=== PATIENT | male | born 1970 | race Two or more races ===

== ENCOUNTER 2018-10-22 14:24 | Inpatient (IN) | payer OTHER ==
[2018-10-22 15:14] VITALS: BMI 44.8
--- NOTE | 2018-10-22 15:39 | HP ---
COWS - Scale Resting Pulse: 0= [place] 80 or Below Sweatin= Chills/Flushing Restless Observation: 1= Difficult to Sit Still Pupil Size: 1= Pupils >than Normal Bone or Joint Aches: 2= Severe Diffuse Aches Runny Nose/ Eye Tearin= Runny Nose/Eyes GI Upset > 30mins: 3= Vomiting/Diarrhea Tremor Observation: 2= Slight Tremor Visible Yawning Observation: 1= 1-2x During Session Anxiety or Irritability: 2=Irritable/Anxious Goose Flesh Skin: 0=Smooth Skin COWS Score: 15 CIWA Score Nausea/Vomitin Muscle Tremors: 2 Anxiety: 2 Agitation: 2 Paroxysmal Sweats: 1-Minimal Palms Moist Orientation: 0-Oriented Tacttile Disturbances: 1-Very Mild Itch/Numbness Auditory Disturbances: 1-Very Mild Visual Disturbances: 0-None Headache: 2-Mild CIWA-Ar Total Score: 13 - Admission Criteria [facility]ASAS Guidelines: Admission for Medically Managed Detox: Requires at least one of the followin. CIWA greater than 12 2. Seizures within the past 24 hours 3. Delirium tremens within the past 24 hours 4. Hallucinations within the past 24 hours 5. Acute intervention needed for co occurring medical disorder 6. Acute intervention needed for co occurring psychiatric disorder 7. Severe withdrawal that cannot be handled at a lower level of care (continued vomiting, continued diarrhea, abnormal vital signs) requiring intravenous medication and/or fluids 8. Admission ROS [facility] Chief Complaint: patient needed help to stop using heroin,alcohol,marijuana Allergies/Adverse Reactions: Allergies Allergy/AdvReac Type Severity Reaction Status Date / Time No Known Allergies Allergy Verified 10/22/18 15:16 History of Present Illness: this 47 years old male with heroin and alcohol dependence,also using marijuana, seeking detox,mandated on parole, seen at [facility] [place] Dvt of right leg supposed to take xerelto ambulation with cane history of dvt left leg in 2016 history of neuropathy history of bipolar disorder,ptsd ambulation with cane last detox in 2016 did not recall the facility longest period of sobriety 7 and a half year had sugery for intestinal obstruction in 1995 at [facility] - Ebola screening Have you traveled outside of the country in the last 21 days: No Have you had contact with anyone from an Ebola affected area: No Have you been sick,other than usual withdrawal symptoms: No Do you have a fever: No - Review of Systems Constitutional: Chills, Loss of Appetite, Malaise, Night Sweats, Changes in sleep, Weakness EENT: reports: Tearing, Nose Congestion Respiratory: reports: No Symptoms reported Cardiac: reports: No Symptoms Reported GI: reports: Nausea, Poor Appetite, Abdominal cramping : reports: No Symptoms Reported Musculoskeletal: reports: Back Pain, Joint Pain, Muscle Pain, Other (pain in the right leg) Integumentary: reports: Dryness Neuro: reports: Headache, Tremors Endocrine: reports: No Symptoms Reported Hematology: reports: No Symptoms Reported Psychiatric: reports: No Sypmtoms Reported, Judgement Intact, Mood/Affect Appropiate, Orientated x3, other (bipolar disorder ptsd) Patient History - Patient Medical History Hx Anemia: No Hx Asthma: No Hx Chronic Obstructive Pulmonary Disease (COPD): No Hx Cancer: No Hx Cardiac Disorders: No Hx Congestive Heart Failure: No Hx Hypertension: No Hx Hypercholesterolemia: No Hx Pacemaker: No HX Cerebrovascular Accident: No Hx Seizures: No Hx Dementia: No Hx Diabetes: No Hx Gastrointestinal Disorders: Yes (surgery for intestinal obstruction in 1995 at [facility]) Hx Liver Disease: No Hx Genitourinary Disorders: No Hx Sexually Transmitted Disorders: No Hx Renal Disease (ESRD): No Hx Thyroid Disease: No Hx Human Immunodeficiency Virus (HIV): No (negative 1 yr ago) Hx Hepatitis C: Yes Hx Depression: Yes Hx Suicide Attempt: Yes Hx Bipolar Disorder: Yes Hx Schizophrenia: No Other Medical History: ptsd,no suicidal,no homicidal,dvt of right leg,dvt left leg,neuropathy - Patient Surgical History Past Surgical History: No Hx Neurologic Surgery: No Hx Cataract Extraction: No Hx Cardiac Surgery: No Hx Lung Surgery: No Hx Breast Surgery: No Hx Breast Biopsy: No Hx Abdominal Surgery: Yes (small bowel obstruction in 1995 [facility]) Hx Appendectomy: No Hx Cholecystectomy: No Hx Genitourinary Surgery: No Hx Section: No Hx Orthopedic Surgery: No Hx Hysterectomy: No Anesthesia Reaction: No - PPD History Previous Implant?: Yes Documented Results: Negative w/o proof Implanted On Prior [facility] Admission?: Yes Date: 07/15/14 Results: 0 mm PPD to be Administered?: No - Smoking Cessation Smoking history: Current every day smoker Have you smoked in the past 12 months: Yes Aproximately how many cigarettes per day: 20 Cigars Per Day: 0 Hx Chewing Tobacco Use: No Initiated information on smoking cessation: Yes 'Breaking Loose' booklet given: 10/22/18 - Substance & Tx. History Hx Alcohol Use: Yes Hx Substance Use: Yes Substance Use Type: Alcohol, Heroin, Marijuana Hx Substance Use Treatment: Yes (2016 did not recall the facility) - Substances Abused Heroin Route: Inhalation Frequency: Daily Amount used: 5-6 BAGS Age of first use: 30 Date of Last Use: 10/21/18 Alcohol Route: Oral Frequency: Daily Amount used: 1 PINT LIQUOR Age of first use: 16 Date of Last Use: 10/20/18 Marijuana/Hashish Route: Smoking Frequency: 1-3 times last 30 days Amount used: 1 JOINT Age of first use: 24 Date of Last Use: 10/19/18 Family Disease History - Family Disease History Family History: Denies Family Disease History: Diabetes: Grandparent, Mother Admission Physical Exam [facility] - Vital Signs Vital Signs: Vital Signs - 24 hr 10/22/18 15:13 Temperature 98.0 F Pulse Rate 73 Respiratory 18 Rate Blood Pressure 126/68 - Physical General Appearance: Yes: Moderate Distress, Tremorous, Irritable, Sweating, Anxious HEENTM: Yes: Normal ENT Inspection, CARMELO, Pharynx Normal Respiratory: Yes: Within Normal Limits, Lungs Clear, Normal Breath Sounds Neck: Yes: Within Normal Limits, Supple, Trachea in good position Breast: Yes: Within Normal Limits Cardiology: Yes: Within Normal Limits, Regular Rhythm, Regular Rate, S1, S2 Abdominal: Yes: Within Normal Limits, Normal Bowel Sounds, Non Tender, Soft, Surgical Scar (surgica scar in epigatrium) Genitourinary: Yes: Within Normal Limits Back: Yes: Muscle Spasm Musculoskeletal: Yes: Back pain, Joint Stiffness, Muscle Pain Extremities: Yes: Within Normal Limits (swelling with pain in right leg and tenderness history of dvt of right leg), Tremors Neurological: Yes: concrete pavement installer II-XII NML intact, Fully Oriented, Alert, Motor Strength 5/5 Integumentary: Yes: Dry Lymphatic: Yes: Within Normal Limits - Diagnostic (1) Opioid dependence with withdrawal Current Visit: Yes Status: Acute (2) Alcohol dependence with uncomplicated withdrawal Current Visit: Yes Status: Acute (3) Cannabis dependence Current Visit: Yes Status: Chronic (4) Right leg DVT Current Visit: Yes Status: Acute (5) History of deep venous thrombosis (DVT) of distal vein of left lower extremity Current Visit: Yes Status: Acute (6) Use of cane as ambulatory aid Current Visit: Yes Status: Acute (7) Nicotine dependence Current Visit: Yes Status: Chronic (8) Bipolar disorder Current Visit: Yes Status: Chronic Comment: By history. Non-compliant with medications and aftercare. (9) PTSD (post-traumatic stress disorder) Current Visit: Yes Status: Acute (10) History of neuropathy Current Visit: Yes Status: Acute (11) History of abdominal surgery Current Visit: Yes Status: Acute (12) Intestinal obstruction Current Visit: Yes Status: Acute (13) Hepatitis C Current Visit: Yes Status: Acute Cleared for Admission [facility] - Detox or Rehab [facility] Level of Care: Medically Managed Detox Regimen/Protocol: Methadone/Librium [facility] Breath Alcohol Content Breath Alcohol Content: 0.001 Urine Drug Screen - Results Drug Screen Negative: No Urine Drug Screen Results: THC-Marijuana, OPI-Opiates, BZO-Benzodiazepines Inpatient Rehab Admission - Rehab Decision to Admit Inpatient rehab admission?: No
[2018-10-22] MEDS ORDERED: MAGNESIUM CITRATE 300 ML BOTTLE PO PRN (15:55)
[2018-10-22] MEDS ORDERED: MENTHOL/PHENOL 1 EACH UD MM PRN (15:55)
[2018-10-22] MEDS ORDERED: MAG HYDROX/AL HYDROX/SIMETH 30 ML UNIT-DOSE CUP PO PRN (15:55)
[2018-10-22] MEDS ORDERED: BISMUTH SUBSALICYLATE 524 MG/30 ML UD PO PRN (15:55)
[2018-10-22] MEDS ORDERED: NICOTINE POLACRILEX 2 MG GUM BUC PRN (15:55)
[2018-10-22] MEDS ORDERED: ACETAMINOPHEN 325 MG TABLET (FP) PO PRN (15:55)
[2018-10-22] MEDS ORDERED: MAGNESIUM HYDROX 2400MG/30ML ORAL SUSPENSION 30 ML CUP PO PRN (15:55)
[2018-10-22] MEDS ORDERED: cloNIDine HCL 0.1 MG TABLET PO PRN (15:55)
[2018-10-22] MEDS ORDERED: chlordiazePOXIDE HCL 25 MG CAPSULE PO PRN (16:00)
[2018-10-22] MEDS: NICOTINE 21 MG/24 HOURS TOPICAL PATCH TD SCH (21:35)
[2018-10-22] MEDS: chlordiazePOXIDE HCL 25 MG CAPSULE PO SCH ×2 (21:36→22:59)
[2018-10-22] MEDS: THIAMINE HCL 100 MG TABLET (FP) PO SCH (21:45)
[2018-10-22] MEDS: GABAPENTIN 100 MG CAPSULE (FP) PO SCH (21:45)
[2018-10-22] MEDS: RIVAROXABAN 15 MG TABLET PO SCH (21:45)
[2018-10-22] MEDS: IBUPROFEN 400 MG TABLET (FP) PO PRN (21:52)
[2018-10-22] MEDS ORDERED: METHADONE HCL 10 MG TABLET (FOR DETOX USE ONLY) PO ONE (23:00)
[2018-10-23] MEDS: chlordiazePOXIDE HCL 25 MG CAPSULE PO SCH ×4 (05:16→22:10)
[2018-10-23] MEDS: GABAPENTIN 100 MG CAPSULE (FP) PO SCH ×3 (08:04→22:10)
[2018-10-23] MEDS ORDERED: METHADONE HCL 10 MG TABLET (FOR DETOX USE ONLY) PO ONE (10:00)
[2018-10-23] MEDS: PRENATAL VITAMINS W/ FOLIC ACID TABLET (FP) PO SCH (10:30)
[2018-10-23 10:58] LABS: ALBUMIN 2.9 g/dl (3.4-5.0); ALK PHOS 99 U/L (45-117); ANION GAP 7 MMOL/L (8-16); BILIRUBIN,TOTAL 0.2 mg/dL (0.2-1); BLOOD UREA NITROGEN 12 mg/dL (7-18); CALCIUM 8.2 mg/dL (8.5-10.1); CHLORIDE 105 mmol/L (98-107); CO2 26 mmol/L (21-32); CREATININE 0.9 mg/dL (0.55-1.3); GLUCOSE,RANDOM 93 mg/dL (74-106); POTASSIUM 3.9 mmol/L (3.5-5.1); SGOT/AST 15 U/L (15-37); SGPT/ALT 16 U/L (13-61); SODIUM 138 mmol/L (136-145); TOT PROT 6.8 g/dl (6.4-8.2)
[2018-10-23 11:05] LABS: HEMATOCRIT 36.6 % (35.4-49); HEMOGLOBIN 12.4 GM/dL (11.7-16.9); MCH 31.4 pg (25.7-33.7); MCHC 33.8 g/dl (32.0-35.9); MEAN PLT VOLUME 8.1 fl (7.5-11.1); PLATELET COUNT 263 K/MM3 (134-434); RBC 3.94 M/mm3 (4.00-5.60); RDW 13.9 % (11.9-15.9); WHITE BLOOD COUNT 8.7 K/mm3 (4.0-10.0)
[2018-10-23] MEDS: NICOTINE 21 MG/24 HOURS TOPICAL PATCH TD SCH (11:34)
--- NOTE | 2018-10-23 14:52 | PN ---
[facility] CIWA - CIWA Score Nausea/Vomitin-No Nausea/No Vomiting Muscle Tremors: 3 Anxiety: 2 Agitation: 2 Paroxysmal Sweats: 3 Orientation: 0-Oriented Tacttile Disturbances: 0-None Auditory Disturbances: 0-None Visual Disturbances: 0-None Headache: 0-None Present CIWA-Ar Total Score: 10 S COWS - Scale Resting Pulse: 0= [place] 80 or Below Sweatin=Flushed/Facial Moisture Restless Observation: 0= Sits Still Pupil Size: 0= Normal to Room Light Bone or Joint Aches: 1= Mild Discomfort Runny Nose/ Eye Tearin= Nasal Congestion GI Upset > 30mins: 2= Nausea/Diarrhea Tremor Observation of Outstretched Hands: 2= Slight Tremor Visible Yawning Observation: 1= 1-2x During Session Anxiety or Irritability: 2=Irritable/Anxious Goose Flesh Skin: 0=Smooth Skin COWS Score: 11 S Progress Note (SOAP) Subjective: chills loss of appetite low back pain diarrhea Objective: 10/23/18 14:52 A & O x3 on bed skin flushed Vital Signs Temperature 97.9 F 10/23/18 13:23 Pulse Rate 67 10/23/18 13:23 Respiratory Rate 16 10/23/18 13:23 Blood Pressure 117/61 10/23/18 13:23 O2 Sat by Pulse Oximetry (%) Laboratory Last Values WBC 8.7 K/mm3 (4.0-10.0) 10/23/18 07:30 RBC 3.94 M/mm3 (4.00-5.60) L 10/23/18 07:30 Hgb 12.4 GM/dL (11.7-16.9) 10/23/18 07:30 Hct 36.6 % (35.4-49) 10/23/18 07:30 MCV 93.0 fl (80-96) 10/23/18 07:30 MCH 31.4 pg (25.7-33.7) 10/23/18 07:30 MCHC 33.8 g/dl (32.0-35.9) 10/23/18 07:30 RDW 13.9 % (11.9-15.9) 10/23/18 07:30 Plt Count 263 K/MM3 (134-434) 10/23/18 07:30 MPV 8.1 fl (7.5-11.1) 10/23/18 07:30 Sodium 138 mmol/L (136-145) 10/23/18 07:30 Potassium 3.9 mmol/L (3.5-5.1) 10/23/18 07:30 Chloride 105 mmol/L (98-107) 10/23/18 07:30 Carbon Dioxide 26 mmol/L (21-32) 10/23/18 07:30 Anion Gap 7 MMOL/L (8-16) L 10/23/18 07:30 BUN 12 mg/dL (7-18) 10/23/18 07:30 Creatinine 0.9 mg/dL (0.55-1.3) 10/23/18 07:30 Creat Clearance w eGFR 90.84 (>60) 10/23/18 07:30 Random Glucose 93 mg/dL (74-106) 10/23/18 07:30 Calcium 8.2 mg/dL (8.5-10.1) L 10/23/18 07:30 Total Bilirubin 0.2 mg/dL (0.2-1) 10/23/18 07:30 AST 15 U/L (15-37) 10/23/18 07:30 ALT 16 U/L (13-61) 10/23/18 07:30 Alkaline Phosphatase 99 U/L (45-117) 10/23/18 07:30 Total Protein 6.8 g/dl (6.4-8.2) 10/23/18 07:30 Albumin 2.9 g/dl (3.4-5.0) L 10/23/18 07:30 RPR Titer Nonreactive (NONREACTIVE) 10/23/18 07:30 labs noted Assessment: 10/23/18 14:54 withdrawal sx Plan: continue detox increase hydration ca supplement
[2018-10-23] MEDS: CALCIUM 250MG/VIT-D 125 UNITS 1 COMBO TABLET PO SCH (15:45)
--- NOTE | 2018-10-23 16:31 | CONSULT ---
[facility] Psychiatric Consult - Data Date of interview: 10/23/18 Admission source: [facility] Identifying data: Readmission to [facility] for this 48 y/o male self- referred for detoxification (alcohol, heroin, cannabis). Examined on . Patient is single, no children, homeless, unemployed and supported on food stamps. Substance Abuse History: Confirmed by patient in this interview. Details in current [facility] report as follows : Smoking history: Current every day smoker. Have you smoked in the past 12 months: Yes. Aproximately how many cigarettes per day: 20. Cigars Per Day: 0. Hx Chewing Tobacco Use: No. Initiated information on smoking cessation: Yes. 'Breaking Loose' booklet given: . - Substance & Tx. History. Hx Alcohol Use: Yes. Hx Substance Use: Yes. Substance Use Type: Alcohol, Heroin, Marijuana. Hx Substance Use Treatment: Yes (2016 did not recall the facility). - Substances Abused. Heroin. Route : Inhalation. Frequency: Daily. Amount used: 5-6 BAGS. Age of first use: 30. Date of Last Use: 10/21/18. Alcohol. Route: Oral. Frequency: Daily. Amount used: 1 PINT LIQUOR. Age of first use: 16. Date of Last Use: 10/20/18. Marijuana/Hashish. Route: Smoking. Frequency: 1-3 times last 30 days. Amount used: 1 JOINT. Age of first use: 24. Date of Last Use: 10/19/18 Medical History: Remarkable for obesity, DVTs (right leg), hepatitis C, neuropathy and a history of abdominal surgery (intestinal obstruction in 1995). Psychiatric History: Patient endorses a history of multiple psychiatric hospitalizations ([facility], [place], [facility], [facility]). Diagnosed with Bipolar Disorder + PTSD (self- report). Mr Marcellus reports his medications as abilify 20 mg/day + wellbutrin XL 150 mg/day + buspar (dose not recalled). Used to be prescribed valproate as well (stopped taking that drug due to unacceptable weight gain). Patient states that he has received OPD services at various facilities which include [facility] + [facility] mental health centers. Distant history of a suicide attempt via " superficial " wrist-cutting (2002). Physical/Sexual Abuse/Trauma History: Patient admits to an extensive history of incarcerations (more than 15 years cumulatively). Released from care home on (self-report). Drug-related offenses, according to patient. On parole for life. Mr Germain introduces self as a [place]. Has reportedly served for 20 months in the [employer] and saw action in [facility] during the first War. Discharged from the in 1991 (honorable, as per patient). Additional Comment: Urine Drug Screen Results: THC-Marijuana, OPI-Opiates, BZO- Benzodiazepines. Noted. Mental Status Exam - Mental Status Exam Alert and Oriented to: Time, Place, Person Cognitive Function: Good Patient Appearance: Well Groomed (short stature, obese) Mood: Anxious, Apprehensive Affect: Mood Congruent Patient Behavior: Fatigued, Talkative, Cooperative Speech Pattern: Clear, Excessive Voice Loudness: Normal Thought Process: Goal Oriented Thought Disorder: Not Present Hallucinations: Denies Suicidal Ideation: Denies Homicidal Ideation: Denies Insight/Judgement: Poor Sleep: Fair Appetite: Good Gait/Station: Other (patient ambulates with a cane) Psychiatric Findings - Problem List ([place] 1, 2,3) (1) Alcohol dependence with uncomplicated withdrawal Current Visit: Yes Status: Acute (2) Opioid dependence with withdrawal Current Visit: Yes Status: Acute (3) Cannabis dependence Current Visit: Yes Status: Chronic (4) Nicotine dependence Current Visit: Yes Status: Chronic (5) Substance induced mood disorder Current Visit: Yes Status: Chronic (6) Bipolar disorder Current Visit: Yes Status: Chronic Comment: By history. Non-compliant with medications and aftercare. (7) Non-compliance Current Visit: Yes Status: Chronic - Initial Treatment Plan Initial Treatment Plan: Psychoeducation. Sleep hygiene. Support. Groups. Relapse prevention : discussed in this session. AA/NA meetings. Motivational rounds throughout hospital course. Patient insists on resuming wellbutrin (but not abilify) and buspirone. Declines to get back on anticonvulsant drugs as mood stabilizers. Made aware of potential for occurrence of manic episodes. Medications revisited : no information about any recent OPD care. No indication about last medication intake. Will observe.
[2018-10-23] MEDS: RIVAROXABAN 15 MG TABLET PO SCH (17:24)
[2018-10-23] MEDS: hydrOXYzine PAMOATE 25 MG CAPSULE (FP) PO PRN (17:57)
[2018-10-23] MEDS: IBUPROFEN 400 MG TABLET (FP) PO PRN (19:04)
[2018-10-23] MEDS: THIAMINE HCL 100 MG TABLET (FP) PO SCH (22:10)
[2018-10-23] MEDS: METHOCARBAMOL 500 MG TABLET PO PRN (22:12)
[2018-10-23] MEDS: MELATONIN 5 MG TABLETS PO PRN (22:13)
[2018-10-23] MEDS: ACETAMINOPHEN 325 MG TABLET (FP) PO PRN (23:12)
[2018-10-24] MEDS: chlordiazePOXIDE HCL 25 MG CAPSULE PO SCH ×2 (05:34→10:22)
[2018-10-24] MEDS: GABAPENTIN 100 MG CAPSULE (FP) PO SCH ×3 (05:34→22:43)
[2018-10-24] MEDS ORDERED: METHADONE HCL 10 MG TABLET (FOR DETOX USE ONLY) PO ONE (10:00)
[2018-10-24] MEDS: PRENATAL VITAMINS W/ FOLIC ACID TABLET (FP) PO SCH (10:19)
[2018-10-24] MEDS: CALCIUM 250MG/VIT-D 125 UNITS 1 COMBO TABLET PO SCH (10:20)
[2018-10-24] MEDS: NICOTINE 21 MG/24 HOURS TOPICAL PATCH TD SCH (10:21)
[2018-10-24] MEDS: ACETAMINOPHEN 325 MG TABLET (FP) PO PRN (10:23)
--- NOTE | 2018-10-24 13:37 | PN ---
[facility] CIWA - CIWA Score Nausea/Vomitin-Mild Nausea/No Vomiting Muscle Tremors: 2 Anxiety: 2 Agitation: 2 Paroxysmal Sweats: 2 Orientation: 0-Oriented Tacttile Disturbances: 0-None Auditory Disturbances: 0-None Visual Disturbances: 0-None Headache: 0-None Present CIWA-Ar Total Score: 9 [facility] COWS - Scale Resting Pulse: 0= [place] 80 or Below Sweatin= Chills/Flushing Restless Observation: 0= Sits Still Pupil Size: 0= Normal to Room Light Bone or Joint Aches: 1= Mild Discomfort Runny Nose/ Eye Tearin= Runny Nose/Eyes GI Upset > 30mins: 2= Nausea/Diarrhea Tremor Observation of Outstretched Hands: 2= Slight Tremor Visible Yawning Observation: 0= None Anxiety or Irritability: 1=Feels Anxious/Irritable Goose Flesh Skin: 0=Smooth Skin COWS Score: 9 [facility] Progress Note (SOAP) Subjective: Chills, body aches, diarrhea, interrupted sleep Objective: 10/24/18 13:34 Last Vital Signs Temp Pulse Resp BP Pulse Ox 98.2 F 70 18 154/55 L 10/24/18 13:04 10/24/18 13:04 10/24/18 13:04 10/24/18 13:04 Laboratory Tests 10/23/18 10/23/18 10/23/18 07:30 07:30 07:30 WBC 8.7 RBC 3.94 L Hgb 12.4 Hct 36.6 MCV 93.0 MCH 31.4 MCHC 33.8 RDW 13.9 Plt Count 263 MPV 8.1 Sodium 138 Potassium 3.9 Chloride 105 Carbon Dioxide 26 Anion Gap 7 L BUN 12 Creatinine 0.9 Creat Clearance w eGFR 90.84 Random Glucose 93 Calcium 8.2 L Total Bilirubin 0.2 AST 15 ALT 16 Alkaline Phosphatase 99 Total Protein 6.8 Albumin 2.9 L RPR Titer Nonreactive Labs reviewed: serum calcium 8.2 Assessment: 10/24/18 13:35 Withdrawal symptoms Mild hypocalcemia noted Plan: Continue detox Encouraged PO water hydration Mild hypocalcemia: continue calcium supplement
[2018-10-24] MEDS ORDERED: chlordiazePOXIDE HCL 10 MG CAPSULE PO PRN (17:00)
[2018-10-24] MEDS: chlordiazePOXIDE HCL 10 MG CAPSULE PO SCH ×2 (17:11→22:43)
[2018-10-24] MEDS: RIVAROXABAN 15 MG TABLET PO SCH (17:11)
[2018-10-24] MEDS: hydrOXYzine PAMOATE 25 MG CAPSULE (FP) PO PRN (21:22)
[2018-10-24] MEDS: METHOCARBAMOL 500 MG TABLET PO PRN (21:22)
[2018-10-24] MEDS: THIAMINE HCL 100 MG TABLET (FP) PO SCH (22:44)
[2018-10-24] MEDS: MELATONIN 5 MG TABLETS PO PRN (22:44)
[2018-10-25] MEDS: chlordiazePOXIDE HCL 10 MG CAPSULE PO SCH ×3 (06:37→16:33)
[2018-10-25] MEDS: GABAPENTIN 100 MG CAPSULE (FP) PO SCH ×3 (06:38→22:06)
[2018-10-25] MEDS ORDERED: METHADONE HCL 10 MG TABLET (FOR DETOX USE ONLY) PO ONE (10:00)
--- NOTE | 2018-10-25 10:26 | EKG ---
Test Reason : Blood Pressure : / mmHG Vent. Rate : 060 BPM Atrial Rate : 060 BPM P-R Int : 146 ms QRS Dur : 088 ms QT Int : 406 ms P-R-T Axes : 034 000 011 degrees QTc Int : 406 ms NORMAL SINUS RHYTHM NORMAL ECG NO PREVIOUS ECGS AVAILABLE Confirmed by DMITRY LEIGH MD ([id number]) on 10/25/2018 10:26:01 AM Referred By: ANTWAN MCCAULEY Confirmed By:DMITRY LEIGH MD
[2018-10-25] MEDS: CALCIUM 250MG/VIT-D 125 UNITS 1 COMBO TABLET PO SCH (11:25)
[2018-10-25] MEDS: PRENATAL VITAMINS W/ FOLIC ACID TABLET (FP) PO SCH (11:26)
[2018-10-25] MEDS: NICOTINE 21 MG/24 HOURS TOPICAL PATCH TD SCH (11:27)
[2018-10-25] MEDS: IBUPROFEN 400 MG TABLET (FP) PO PRN (16:34)
--- NOTE | 2018-10-25 16:43 | PN ---
[facility] Progress Note (SOAP) Subjective: Fatigue, Body Aches. Objective: PATIENT A & O X 2 (UNCERTAIN ABOUT CURRENT DAY / DATE). PATIENT OBSERVED AMBULATING ON UNIT WITH ASSISTANCE OF A CANE. IN NO ACUTE DISTRESS. 10/25/18 16:41 Vital Signs Temperature 98.4 F 10/25/18 15:25 Pulse Rate 83 10/25/18 15:25 Respiratory Rate 18 10/25/18 15:25 Blood Pressure 122/69 10/25/18 15:25 O2 Sat by Pulse Oximetry (%) Laboratory Tests 10/23/18 10/23/18 10/23/18 07:30 07:30 07:30 WBC 8.7 RBC 3.94 L Hgb 12.4 Hct 36.6 MCV 93.0 MCH 31.4 MCHC 33.8 RDW 13.9 Plt Count 263 MPV 8.1 Sodium 138 Potassium 3.9 Chloride 105 Carbon Dioxide 26 Anion Gap 7 L BUN 12 Creatinine 0.9 Creat Clearance w eGFR 90.84 Random Glucose 93 Calcium 8.2 L Total Bilirubin 0.2 AST 15 ALT 16 Alkaline Phosphatase 99 Total Protein 6.8 Albumin 2.9 L RPR Titer Nonreactive LABS NOTED. ADMISSION CXR RESULTS (FOR HISTORY OF POSITIVE PPD) PENDING. 10/25/18 16:47 Assessment: 10/25/18 16:42 WITHDRAWAL SYMPTOMS. Plan: CONTINUE DETOX. PRESCRIPTION FOR XARELTO (FOR HISTORY OF DVT OF RIGHT LEG) FOR FOLLOW-UP AFTERCARE SENT TO [facility] (AT PATIENT'S REQUEST) FOR PATIENT TO SECURITY SOLUTIONS ENGINEER AFTER DISCHARGE FROM DETOX UNIT.
--- NOTE | 2018-10-25 16:54 | PN ---
[facility] Progress Note Note: CRYPTOGRAPHIC CLERK DANIEL OBSERVED PATIENT FALL ONTO BILATERAL KNEES WHILE TRYING TO GET UP FROM TABLE IN DINING ROOM. ACCORDING TO CRYPTOGRAPHIC CLERK, PATIENT FELL TO KNEE, HIS LEFT HAND GRABBED ONTO THE NEARBY TABLE AND HIS RIGHT HAND HELD ON TO THE CANE THAT HE WAS PREVIOUSLY USING TO ASSIST WITH AMBULATION ON DETOX UNIT. PATIENT WAS SHORTLY AFTER ABLE TO GET BACK UP WITH MINIMAL ASSISTANCE AND THEN ABLE TO AMBULATE WITH CANE. PATIENT DENIES HITTING HIS HEAD DURING FALL AND HE DENIES LOC AFTER FALL. THIS CONFIRMED BY CRYPTOGRAPHIC CLERK DANIEL. NO WOUNDS, SWELLING, OR ERYTHEMA NOTED ON PATIENT'S HEAD, ON BILATERAL HANDS OR ON BILATERAL KNEES. PATIENT A & O X 3. VS: BP: 101/69; P: 82; T: 98.1; O2: 97 %; RR: 18. [facility] FALL PROTOCOL # 1 IMPLEMENTED (PATIENT ON XARELTO FOR HISTORY OF DVT OF RIGHT LEG). WILL CONTINUE TO MONITOR. Jesse MCCAULEY NP
[2018-10-25] MEDS: RIVAROXABAN 15 MG TABLET PO SCH (17:56)
[2018-10-25] MEDS: hydrOXYzine PAMOATE 25 MG CAPSULE (FP) PO PRN (18:38)
[2018-10-25] MEDS ORDERED: hydrOXYzine PAMOATE 50 MG CAPSULE (FP) PO PRN (18:46)
--- NOTE | 2018-10-25 18:48 | PN ---
[facility] Progress Note Note: Vital Signs Temperature 98.1 F 10/25/18 17:35 Pulse Rate 86 10/25/18 17:35 Respiratory Rate 19 10/25/18 17:35 Blood Pressure 135/83 10/25/18 17:35 O2 Sat by Pulse Oximetry (%) c/o of anxiety and depression with no relief with vistaril 254 mg . NOÉ Peraza made psych aware, and patient will be evaluated in the morning. last ekg reviewed NSR, Vistaril increased to 50 mg. Increase PO fluids maintain therapeutic environment continue to monitor
--- NOTE | 2018-10-25 19:55 | PN ---
[facility] Progress Note Note: Psychiatry Attending's note (follow-up) : Came to re-evaluate the patient during daytime. Reason : to address patient's request for wellbutrin. Already discussed with patient on 10/23/18. Mr Germain was approached by staff. Was made aware of the presence of psychiatrist. Waiting on the unit to proceed with the re-evaluation. Patient was on the telephone. Mr Germain postponed interview. Oblivious to writer editor waiting at the nursing station. Evaluation had to be deferred. Discussed with nurse Ms Alexsandra Alves. At issue : patient requested to be on wellbutrin. Declined mood stabilizers. Refused to take any atypical agents (zyprexa, risperdal, abilify, seroquel, geodon). Has also declined lithium and alternate anticonvulsants proposed to him on . Wants welbutrin XL at bedtime. Psychoeducation was provided to Mr Germain. Records were reviewed with patient. Confirmed chronic non-adherence to medications. Case discussed with psychiatrist, Dr Whalen (via telephone + in person) on + 10/25/18. Management of bipolar disorder was discussed with patient. Patient was informed of the treatment guidelines for bipolar disorder. Treating this patient only with an antidepressant is NOT appropriate. Mr Germain continues to oppose resistance to psychoeducation. Plan : . Continue detoxification. . Address medical issues. . Verbal redirections. . Facilitate transition to rehabilitative care. . Psychiatric re-consult in the morning. . Regimen for bipolar disorder : will again be presented to patient. . Mood stabilizers to be re-started during rehabilitation. . In addition to an atypical formulation of patient's choice. . If patient escalates, thus, placing self or others at risk in the therapeutic milieu, will contact [facility] ED for emergency psychiatric evaluation + disposition. . Plaque Maker will follow.
[2018-10-25] MEDS: THIAMINE HCL 100 MG TABLET (FP) PO SCH (22:06)
[2018-10-25] MEDS: MELATONIN 5 MG TABLETS PO PRN (22:06)
[2018-10-25] MEDS: METHOCARBAMOL 500 MG TABLET PO PRN (22:09)
[2018-10-26] MEDS ORDERED: METHADONE HCL 5 MG TABLET (FOR DETOX USE ONLY) PO ONE (06:00)
[2018-10-26] MEDS: GABAPENTIN 100 MG CAPSULE (FP) PO SCH ×3 (06:57→23:22)
[2018-10-26] MEDS: chlordiazePOXIDE HCL 10 MG CAPSULE PO SCH ×2 (06:59→18:52)
[2018-10-26] MEDS: PRENATAL VITAMINS W/ FOLIC ACID TABLET (FP) PO SCH (11:00)
[2018-10-26] MEDS: NICOTINE 21 MG/24 HOURS TOPICAL PATCH TD SCH (11:00)
[2018-10-26] MEDS: CALCIUM 250MG/VIT-D 125 UNITS 1 COMBO TABLET PO SCH (11:00)
--- NOTE | 2018-10-26 11:07 | PN ---
S Progress Note (SOAP) Subjective: alert,irritable,anxious,interrupted sleep,feel weak Objective: 10/26/18 11:06 Vital Signs Temperature 98.1 F 10/26/18 09:18 Pulse Rate 71 10/26/18 09:18 Respiratory Rate 18 10/26/18 09:18 Blood Pressure 103/65 10/26/18 09:18 O2 Sat by Pulse Oximetry (%) Assessment: 10/26/18 11:07 withdrawal symptom Plan: continue detox,discharge in am
--- NOTE | 2018-10-26 16:43 | PN ---
[facility] Progress Note Note: Psychiatry Attending's note (follow-up) : Second visit, today, to [address] [place] [address] to see Mr Germain. Case was discussed earlier with nurse Alexsandra Alves. In person. No incident reported. No request made for re-consult. Pitching Coach returned this afternoon for a brief meeting with the patient. Mr Germain is found in his room, quietly eating his dinner. Greeted engineering writer. Declined having any issue to discuss. Patient is noted as calm, relaxed and friendly on approach. Coherent and goal-directed. Feels fine. Adherent to treatment. " I am happy. I am going to rehab. That's what I wanted ". No indication for crisis intervention. Pursue rehabilitation.
[2018-10-26] MEDS: RIVAROXABAN 15 MG TABLET PO SCH (18:44)
[2018-10-26] MEDS: METHOCARBAMOL 500 MG TABLET PO PRN (18:45)
[2018-10-26] MEDS: THIAMINE HCL 100 MG TABLET (FP) PO SCH (23:22)
[2018-10-27] MEDS: GABAPENTIN 100 MG CAPSULE (FP) PO SCH (07:00)
[2018-10-27 07:12] VITALS: TEMP 98.2
--- NOTE | 2018-10-27 08:56 | DS ---
[facility] Detox Discharge Summary Admission Date: 10/22/18 Discharge Date: 10/27/18 - History Present History: Alcohol Dependence, Cannabis Dependence, Opioid Dependence - Physical Exam Results Vital Signs: Vital Signs Temperature 98.2 F 10/27/18 07:11 Pulse Rate 67 10/27/18 07:11 Respiratory Rate 20 10/27/18 07:11 Blood Pressure 103/43 L 10/27/18 07:11 O2 Sat by Pulse Oximetry (%) - Treatment Hospital Course: Detox Protocol Followed, Detoxed Safely, Responded well, Discharged Condition Good, Rehab Referral Accepted - Medication Discharge Medications: Ambulatory Orders Bupropion HCl [Wellbutrin Xl -] 150 mg PO HS 10/22/18 Bupropion HCl [Wellbutrin Xl -] 300 mg PO DAILY 10/22/18 Buspirone HCl [Buspar -] 30 mg PO BID 10/22/18 Rivaroxaban [Xarelto] 15 mg PO DAILY 30 Days #30 tab 10/25/18 - Diagnosis (1) Alcohol dependence with uncomplicated withdrawal Current Visit: Yes Status: Chronic (2) Hepatitis C Current Visit: Yes Status: Chronic Qualifiers: Viral hepatitis chronicity: chronic Hepatic coma status: without hepatic coma Qualified Code(s): B18.2 - Chronic viral hepatitis C (3) History of abdominal surgery Current Visit: Yes Status: Acute (4) History of deep venous thrombosis (DVT) of distal vein of left lower extremity Current Visit: Yes Status: Acute (5) History of neuropathy Current Visit: Yes Status: Acute (6) Intestinal obstruction Current Visit: Yes Status: Acute (7) Opioid dependence with withdrawal Current Visit: Yes Status: Chronic (8) PTSD (post-traumatic stress disorder) Current Visit: Yes Status: Acute (9) Right leg DVT Current Visit: Yes Status: Acute Qualifiers: Affected thrombotic vein of extremity: unspecified vein of extremity Chronicity: unspecified Qualified Code(s): I82.401 - Acute embolism and thrombosis of unspecified deep veins of right lower extremity (10) Use of cane as ambulatory aid Current Visit: Yes Status: Acute (11) Bipolar disorder Current Visit: Yes Status: Chronic (12) Cannabis dependence Current Visit: Yes Status: Chronic (13) Nicotine dependence Current Visit: Yes Status: Chronic Qualifiers: Nicotine product type: cigarettes Substance use status: uncomplicated Qualified Code(s): F17.210 - Nicotine dependence, cigarettes, uncomplicated (14) Non-compliance Current Visit: Yes Status: Chronic (15) Substance induced mood disorder Current Visit: Yes Status: Chronic - AMA Did Patient Leave Against Medical Advice: No (referred to outpatient rehab)
[2018-10-27 09:45] VITALS: BP 115/75; PULSE 79
== END 2018-10-27 10:51 | disposition home or self-care (01) | DRG 773 ==
LOC: YASAS 14:24 → Y6N 15:42
PROVIDERS: ADMIT Surgery; ATTEND Surgery
PROC: HZ2ZZZZ Detoxification Services for Substance Abuse Treatment (ICD-10-PCS; principal; 2018-10-22)
DX: F11.23 Opioid dependence with withdrawal (principal); F10.230 Alcohol dependence with withdrawal, uncomplicated; F12.20 Cannabis dependence, uncomplicated; F17.210 Nicotine dependence, cigarettes, uncomplicated; F43.10 Post-traumatic stress disorder, unspecified; F31.9 Bipolar disorder, unspecified; F19.24 Other psychoactive substance dependence with psychoactive substance-induced mood disorder; I82.401 Acute embolism and thrombosis of unspecified deep veins of right lower extremity; E83.51 Hypocalcemia; B18.2 Chronic viral hepatitis C; G62.9 Polyneuropathy, unspecified; E66.9 Obesity, unspecified; Z68.41 Body mass index [BMI] 40.0-44.9, adult; R26.2 Difficulty in walking, not elsewhere classified; Z99.89 Dependence on other enabling machines and devices; Z91.19 Patient's noncompliance with other medical treatment and regimen; Z79.01 Long term (current) use of anticoagulants
CPT/HCPCS: 36415; 71045-TC-FY; 80053; 85027; 86593; 93005; 93010; J0735